=== PATIENT | male | born 1975 | race Two or more races ===

== ENCOUNTER 2022-07-13 09:46 | Emergency (ER) | payer MEDICAID ==
[~2022-07-13] VITALS: Ht 165.1 cm; Wt 54.0 kg
[2022-07-13 09:55] VITALS: BP 106/58
[2022-07-13] MEDS ORDERED: TETANUS-DIPTH-ACEL PERTUSSIS 0.5ML SYR Tdap IM ONE (11:15)
== END 2022-07-13 11:33 | disposition home or self-care (01) ==
LOC: ER 09:46
DX: S91.331A Puncture wound without foreign body, right foot, initial encounter (principal); W22.8XXA Striking against or struck by other objects, initial encounter; Y93.01 Activity, walking, marching and hiking; Y92.89 Other specified places as the place of occurrence of the external cause; Y99.8 Other external cause status
CPT/HCPCS: 90471; 90715